=== PATIENT | female | born 1985 | race Caucasian/White ===

== ENCOUNTER 2016-08-16 12:38 | Emergency (ER) | payer BC ==
[2016-08-16 12:51] VITALS: BP 127/74
--- NOTE | 2016-08-16 13:14 | UC ---
Complaint Female HPI - HPI Summary HPI Summary: pt c/o sudden onset of labial swelling this morning while having heterosexual intercourse this morning. Pt denies pain,injury, discharge or known exposure to STD's. Pt reports that she has always had "extra skin flap" at her vaginal opening that began to swell with intercourse this morning. Pt states that she felt that there was not enough lubricant and and intercourse was initially "dry " and tender. Pt reports that she took an OTC antihistamine at 10 am and noted some relief of swelling. - History Of Current Complaint Chief Complaint: UC Stated Complaint: PERSONAL Time Seen by Provider: 08/16/16 12:53 Hx Obtained From: Patient Hx Last Menstrual Period: 07/24/16 ?: No Onset/Duration: Sudden Onset, Lasting Hours Timing: Constant Severity Initially: Moderate Severity Currently: Mild Aggravating Factor(s): [place] Associated Signs And Symptoms: Positive: Negative - Allergies/Home Medications Allergies/Adverse Reactions: Allergies Allergy/AdvReac Type Severity Reaction Status Date / Time No Known Allergies Allergy Verified 08/16/16 12:44 Home Medications: Home Medications Desloratidine (NF) [Clarinex (NF)] 5 mg PO DAILY PRN 08/16/16 [History Confirmed 08/16/16] Lifitegrast [Xiidra] 5 % OP 08/16/16 [History] PMH/Surg Hx/FS Hx/Imm Hx Previously Healthy: Yes - Surgical History Surgical History: None - Family History Known Family History: Positive: Other - denies FMH of obstetrics/gynecology nurse disorders - Social History Lives: With Family Alcohol Use: Occasionally Substance Use Type: None Smoking Status (MU): Never Smoked Tobacco - Immunization History Most Recent Influenza Vaccination: none Review of Systems Constitutional: Negative Skin: Other - swelling Eyes: Negative ENT: Negative Respiratory: Negative Cardiovascular: Negative Gastrointestinal: Negative Genitourinary: Other - labia and vaginal swelling Motor: Negative Neurovascular: Negative Musculoskeletal: Negative Neurological: Negative Psychological: Negative All Other Systems Reviewed And Are Negative: Yes Physical Exam Triage Information Reviewed: Yes Appearance: Well-Appearing Vital Signs: Initial Vital Signs Temp 99.4 F 08/16/16 12:45 Pulse 84 08/16/16 12:45 Resp 16 08/16/16 12:45 BP 127/74 08/16/16 12:45 Pulse Ox 99 08/16/16 12:45 Vital Signs Reviewed: Yes Neck exam: Normal Respiratory Exam: Normal Cardiovascular Exam: Normal Abdominal Exam: Other Abdomen Description: Positive: Other: - labia minora mild swelling, swelling at opening of vagina of "flaps " of skin, non tender, mild erythema Musculoskeletal Exam: Normal Neurological Exam: Normal Psychological Exam: Normal Skin Exam: Other - mild swelling of "flaps" at opeining of vagina Complaint Female Dx - Differential Dx/Diagnosis Differential Diagnosis/HQI/PQRI: Bartholin Cyst, Sexually Transmitted Disease, Other - dermatitis Provider Diagnoses: dermatitis Discharge - Discharge Plan Condition: Stable Disposition: HOME Patient Education Materials: Dermatitis (ED) Referrals: Kala Robbins MD [Primary Care Provider] - Additional Instructions: Please follow up with your PCP as needed or return to clinic.
== END 2016-08-16 13:45 | disposition home or self-care (01) ==
LOC: UCEAST 12:38
DX: L30.9 Dermatitis, unspecified (principal); Z32.02 Encounter for pregnancy test, result negative
CPT/HCPCS: 81002; 81025; 99211; G0463

== ENCOUNTER 2022-07-16 00:46 | Inpatient (IN) ==
[2022-07-16] MEDS ORDERED: Buffered Lidocaine 1% SYRIN 1 ml INTRADERM ONE (03:42)
[2022-07-16] MEDS ORDERED: Lidocaine 2% JELLY 6 ML Topical TOPICAL ONE (13:50)
[2022-07-16] MEDS ORDERED: Lactated Ringers 1000 ml BAG 1,000 ML IV ONE (16:11)
[2022-07-16] MEDS ORDERED: Lactated Ringers 1000 ml BAG 1,000 ML IV SCH (17:00)
[2022-07-16 17:53] LABS: Urine Benzodiazepine Screen None Detected (None Detect); Urine Cannabinoids Screen None Detected (None Detect); Urine Opiates Screen None Detected (None Detect)
[2022-07-16 23:33] LABS: ABS Monocytes 0.6 10^3/ul (0-0.8); ABS Neutrophils 16.1 10^3/ul (1.5-7.7); Hematocrit 37 % (35-47); Hemoglobin 12.6 g/dL (12.0-16.0); Lymphocyte % 5.8 %; Mean Corpuscular HGB Conc 34 g/dL (31-36); Mean Corpuscular Hemoglobin 31 pg (27-31); Mean Corpuscular Volume 89 fL (80-97); Mean Platelet Volume 9.5 fL (7.4-10.4); Platelet Count 156 10^3/uL (150-450); Red Blood Count 4.12 10^6 /uL (3.70-4.87); Red Cell Distribution Width 13 % (10-15); White Blood Count 17.9 10^3/uL (3.5-10.8)
[2022-07-16] MEDS ORDERED: Lidocaine/Epinephrin 1.5%/200 5 ML AMP INJ ONE (23:49)
[2022-07-16] MEDS ORDERED: OBEPIDURAL (200 ML) 200 ML EPIDURAL ONE (23:49)
[2022-07-17] MEDS ORDERED: Lactated Ringers 1000 ml BAG 1,000 ML IV ONE (00:23)
[2022-07-17] MEDS ORDERED: Lactated Ringers 1000 ml BAG 500 ML IV PRN ×2 (00:23)
[2022-07-17] MEDS ORDERED: Sodium Citrate/Citric Acid LIQ 15 ML UDC PO PRN (00:23)
[2022-07-17] MEDS ORDERED: Phenylephrine 40 mcg/mL 10mL (400mcg) SYRINGE IV PUSH PRN ×2 (00:23)
[2022-07-17] MEDS ORDERED: Lactated Ringers 1000 ml BAG 1,000 ML IV SCH ×2 (01:00→19:00)
[2022-07-17] MEDS ORDERED: OBEPIDURAL (200 ML) 200 ML EPIDURAL SCH (01:00)
[2022-07-17 02:00] LABS: Urine Appearance Clear; Urine Bilirubin Negative (Negative); Urine Color Yellow; Urine Glucose Negative (Negative); Urine Ketones 2+ (40mg/dL) (Negative); Urine Specific Gravity 1.025 (1.005-1.030)
[2022-07-17 02:01] LABS: Urine Blood Negative (Negative); Urine Nitrite Negative (Negative); Urine Protein Negative (Negative); Urine Urobilinogen 0.2 (Negative) (Negative); Urine pH 5.5 (5.0-9.0)
[2022-07-17] MEDS ORDERED: Oxytocin in LR 20,000 MILLI.UNIT/1,000 ML BAG IV SCH ×2 (02:30→18:45)
[2022-07-17] MEDS ORDERED: OBEPIDURAL (200 ML) 200 ML EPIDURAL ONE (16:07)
[2022-07-17] MEDS ORDERED: ceFAZolin VIAL VIAL ONE (18:26)
[2022-07-17] MEDS ORDERED: Methylergonovine 0.2 mg AMPULE 1 ml AMP IM ONE (19:04)
[2022-07-17] MEDS ORDERED: ceFAZolin 2 GM in NS PREMIX 2 GM/100 ML BAG IVPB ONE (19:04)
[2022-07-17] MEDS: Dibucaine 1% OINT 28.35 GM TUBE PR PRN (23:00)
[2022-07-17] MEDS: Witch Hazel PAD JAR TOPICAL PRN (23:00)
[2022-07-17] MEDS ORDERED: Lidocaine 1% VIAL 10 MG/ML VIAL 30 ML ONE (23:59)
[2022-07-18 08:10] LABS: Hematocrit 31 % (35-47); Hemoglobin 10.5 g/dL (12.0-16.0); Mean Corpuscular HGB Conc 34 g/dL (31-36); Mean Corpuscular Hemoglobin 31 pg (27-31); Mean Corpuscular Volume 91 fL (80-97); Mean Platelet Volume 10.6 fL (7.4-10.4); Platelet Count 130 10^3/uL (150-450); Red Blood Count 3.45 10^6 /uL (3.70-4.87); Red Cell Distribution Width 13 % (10-15); White Blood Count 19.1 10^3/uL (3.5-10.8)
[2022-07-18 09:00] LABS: ABS Eosinophils 0.1 10^3/ul (0-0.6); ABS Lymphocytes 1.8 10^3/ul (1.0-4.8); ABS Monocytes 1.6 10^3/ul (0-0.8); ABS Neutrophils 15.6 10^3/ul (1.5-7.7); Eosinophil % 0.4 %; Lymphocyte % 9.5 %
[2022-07-19 08:11] VITALS: BP 115/70
[2022-07-19] MEDS: Dibucaine 1% OINT 28.35 GM TUBE PR PRN (14:17)
[2022-07-19] MEDS: Witch Hazel PAD JAR TOPICAL PRN (14:17)
== END 2022-07-19 14:50 | disposition home or self-care (01) | DRG 560 ==
LOC: MCHOBOUT 00:46 → MCHOB 15:00
PROVIDERS: ADMIT Midwife; ATTEND Midwife